=== PATIENT | female | born 1985 | race African-American/Black ===

== ENCOUNTER → 2016-08-16 | Outpatient (CLI) | payer OTHER ==
[~2016-08-16] MED LIST: BACTRIM DS 8001 TAB PO; CEPHALEXIN500 M1 PO; FLAGYL ER750 MG PO; LORTAB 2.5/5001 TAB PO; LORTAB 5/500 501 TAB PO; NO HOME MEDICATIONS; NORCO 325 MG-51 TAB PO; PEPCID AC 10MG10 MG PO; PREDNISONE20 MG PO; PROAIR HFA0.09 MG/AC IH; PROTONIX 40MG T40 MG PO; PULMICORT0.5 MG/21 IH; PYRIDIUM 100MG100 MG PO; SEPTRA DS 8001 TAB PO; [UNRECOGNIZED DRUG - REMARK]; proair inhaler
[2016-08-16 13:08] LABS: MEAN CELL VOLUME 90 fl (80.0-100.0); MEAN CORPUSCULAR HEMOGLOBIN 31 pg (27.0-31.0); MEAN CORPUSCULAR HGB CONC 34 g/dl (33.0-37.0); MEAN PLATELET VOLUME 11.2 fl (7.4-10.4); PLATELET COUNT 217 K/mm3 (130-400); RED BLOOD COUNT 4.55 M/mm3 (4.10-5.30); REDCELL DISTRIBUTION WIDTH-CV 11.7 % (11.5-14.5); WHITE BLOOD COUNT 3.7 K/mm3 (4.8-10.8)
[2016-08-16 13:18] LABS: ADJUSTED CALCIUM 9.2 mg/dL (8.4-10.2); ALBUMIN 4.1 gm/dL (3.5-5.0); BILIRUBIN,TOTAL 1.8 mg/dL (0.0-1.0); CALCIUM 9.3 mg/dL (8.4-10.2); CREATININE, serum 0.62 mg/dL (0.52-1.25); POTASSIUM 3.5 mmol/L (3.4-5.0); TOTAL PROTEIN 7.9 gm/dL (6.4-8.2)
== END ==
LOC: COL.LAB 12:39
PROVIDERS: Physician Assistant
DX: Z01.89 Encounter for other specified special examinations (principal)

== ENCOUNTER 2017-03-30 18:39 | Emergency (ER) | payer OTHER ==
[~2017-03-30] VITALS: Ht 162.6 cm; Wt 52.7 kg
[2017-03-30 18:43] VITALS: TEMP 99.3
[2017-03-30 19:54] LABS: BASO % 0.3 % (0.0-2.0); EOS # 0.3 (0.0-0.7); GRAN # 4.7 (1.4-6.5); HEMOGLOBIN 12.1 g/dl (12.5-16.0); LYMPH # 1.6 (1.2-3.4); LYMPH % 22.2 % (20.0-51.0); MEAN CELL VOLUME 91 fl (80.0-100.0); MEAN CORPUSCULAR HEMOGLOBIN 31 pg (27.0-31.0); MEAN CORPUSCULAR HGB CONC 34 g/dl (33.0-37.0); MEAN PLATELET VOLUME 10.9 fl (7.4-10.4); MONO # 0.4 (0.1-0.6); MONO % 6.2 % (1.7-9.3); PLATELET COUNT 198 K/mm3 (130-400); RED BLOOD COUNT 3.87 M/mm3 (4.10-5.30); REDCELL DISTRIBUTION WIDTH-CV 12.8 % (11.5-14.5); WHITE BLOOD COUNT 7.1 K/mm3 (4.8-10.8)
[2017-03-30 20:04] LABS: HEMATOCRIT 35.3 % (37.0-47.0)
[2017-03-30 20:14] LABS: PH 6 (5-8); SQUAMOUS EPITHELIAL 20-50 /hpf; URINE APPEARANCE Cloudy; URINE BACTERIA Occasional /hpf; URINE BILIRUBIN Negative (NEGATIVE); URINE BLOOD 3+ (NEGATIVE); URINE COLOR Red; URINE GLUCOSE Negative (NEGATIVE); URINE KETONE Negative (NEGATIVE); URINE UROBILINOGEN Negative (NEGATIVE); URINE WBC 20-50 /hpf
[2017-03-30 21:01] LABS: PH 6 (5-8); SQUAMOUS EPITHELIAL 0-2 /hpf; URINE APPEARANCE Clear; URINE BACTERIA Rare /hpf; URINE BILIRUBIN Negative (NEGATIVE); URINE BLOOD 1+ (NEGATIVE); URINE COLOR Yellow; URINE GLUCOSE Negative (NEGATIVE); URINE KETONE 1+ (NEGATIVE); URINE RBC 0-2 /hpf; URINE UROBILINOGEN Negative (NEGATIVE); URINE WBC 0-2 /hpf
[2017-03-30 21:53] VITALS: BP 111/64; PULSE 94
== END 2017-03-30 21:54 | disposition home or self-care (01) ==
LOC: COL.ER 18:39
PROVIDERS: Physician Assistant
DX: O45.92 Premature separation of placenta, unspecified, second trimester (principal); Z3A.15 15 weeks gestation of pregnancy; Z87.42 Personal history of other diseases of the female genital tract; Z98.890 Other specified postprocedural states

== ENCOUNTER 2017-04-25 18:59 | Emergency (ER) | payer OTHER ==
[~2017-04-25] VITALS: Ht 162.6 cm; Wt 52.3 kg
[2017-04-25 19:08] VITALS: BP 116/57; TEMP 98.3
[2017-04-25 20:27] LABS: PH 5 (5-8); URINE APPEARANCE Hazy; URINE BACTERIA Rare /hpf; URINE BILIRUBIN Negative (NEGATIVE); URINE BLOOD Negative (NEGATIVE); URINE COLOR Yellow; URINE GLUCOSE Negative (NEGATIVE); URINE KETONE Negative (NEGATIVE); URINE UROBILINOGEN Negative (NEGATIVE)
[2017-04-25 20:49] VITALS: PULSE 81
== END 2017-04-25 20:49 | disposition home or self-care (01) ==
LOC: COL.ER 18:59
PROVIDERS: Nurse Practitioner
DX: O26.892 Other specified pregnancy related conditions, second trimester (principal); R10.30 Lower abdominal pain, unspecified; O99.512 Diseases of the respiratory system complicating pregnancy, second trimester; J45.909 Unspecified asthma, uncomplicated; Z3A.18 18 weeks gestation of pregnancy; Z98.890 Other specified postprocedural states

== ENCOUNTER 2017-09-02 06:38 | Outpatient (CLI) | payer OTHER ==
[~2017-09-02] VITALS: Ht 162.6 cm; Wt 63.6 kg
[2017-09-02 06:31] VITALS: BP 106/59; PULSE 74; TEMP 98
[2017-09-02] MEDS ORDERED: PRENATAL MVI (06:56)
[2017-09-02] MEDS ORDERED: TYLENOL 500MG500 MG PO (06:57)
[2017-09-02 07:15] VITALS: BP 106/59; PULSE 74; TEMP 98
[2017-09-02 08:00] VITALS: BP 112/74; PULSE 97
[2017-09-02 08:15] VITALS: BP 108/69; PULSE 89
[2017-09-02 08:30] VITALS: BP 111/66; PULSE 81
== END 2017-09-02 08:50 | disposition home or self-care (01) ==
LOC: LDRO 06:38
DX: O32.1XX0 Maternal care for breech presentation, not applicable or unspecified (principal); Z3A.37 37 weeks gestation of pregnancy
CPT/HCPCS: J3105

== ENCOUNTER 2017-09-20 04:27 | Inpatient (IN) | payer OTHER ==
[~2017-09-20] VITALS: Ht 162.6 cm; Wt 64.1 kg
[2017-09-20] VITALS (44 sets, daily range): BP systolic 89–129; BP diastolic 53–89; PULSE 59–121; TEMP 97.3–98.2
[~2017-09-20 04:27] MED LIST changes: +PRENATAL MVI; +TYLENOL 500MG500 MG PO
[2017-09-20 12:55] LABS: HEMATOCRIT 42.8 % (37.0-47.0); HEMOGLOBIN 14.3 g/dl (12.5-16.0); MEAN CELL VOLUME 94 fl (80.0-100.0); MEAN CORPUSCULAR HEMOGLOBIN 31 pg (27.0-31.0); MEAN CORPUSCULAR HGB CONC 33 g/dl (33.0-37.0); MEAN PLATELET VOLUME 12.2 fl (7.4-10.4); PLATELET COUNT 150 K/mm3 (130-400); RED BLOOD COUNT 4.57 M/mm3 (4.10-5.30)
[2017-09-20 13:21] LABS: BAND 2 % (0-10); LYMPHOCYTE 9 % (20.0-51.0); NEUTROPHILS 86 % (42.0-75.2); PLATELET ESTIMATE NORMAL (NORMAL)
[2017-09-21] VITALS (13 sets, daily range): BP systolic 98–129; BP diastolic 51–78; PULSE 64–98; TEMP 97–98.2
[2017-09-21 07:50] LABS: BASO % 0.3 % (0.0-2.0); EOS % 0.2 % (0-4.0); GRAN # 10.3 (1.4-6.5); GRAN % 84.8 % (42.2-75.2); LYMPH % 8.3 % (20.0-51.0); MEAN CELL VOLUME 93 fl (80.0-100.0); MEAN CORPUSCULAR HGB CONC 34 g/dl (33.0-37.0); MEAN PLATELET VOLUME 11.7 fl (7.4-10.4); MONO # 0.7 (0.1-0.6); PLATELET COUNT 124 K/mm3 (130-400); RED BLOOD COUNT 3.76 M/mm3 (4.10-5.30); REDCELL DISTRIBUTION WIDTH-CV 13.1 % (11.5-14.5)
[2017-09-21 07:51] LABS: HEMOGLOBIN 11.8 g/dl (12.5-16.0); MEAN CORPUSCULAR HEMOGLOBIN 31 pg (27.0-31.0)
[2017-09-22 08:35] VITALS: BP 100/68; PULSE 74; TEMP 97.3
[2017-09-22 16:24] VITALS: BP 113/74; PULSE 88; TEMP 97.8
[2017-09-22 20:30] VITALS: BP 115/68; PULSE 73; TEMP 97.3
[2017-09-23] VITALS: BP 117/65; PULSE 84; TEMP 98.4
[2017-09-23] MEDS ORDERED: IBU600 MG PO (07:59)
[2017-09-23] MEDS ORDERED: PERCOCET 325 MG1 TA2 PO (07:59)
[2017-09-23 08:15] VITALS: BP 110/80; PULSE 38; TEMP 98.3
== END 2017-09-23 13:05 | disposition home or self-care (01) | DRG 766 ==
LOC: LDRO 04:27 → OB 12:15 → LDR 12:15 → OB 09-21 02:36
PROVIDERS: Obstetrics & Gynecology
PROC: 10D00Z1 Extraction of Products of Conception, Low, Open Approach (ICD-10-PCS; principal; 2017-09-20)
DX: O76 Abnormality in fetal heart rate and rhythm complicating labor and delivery (principal); O99.824 Streptococcus B carrier state complicating childbirth; O77.0 Labor and delivery complicated by meconium in amniotic fluid; Z3A.39 39 weeks gestation of pregnancy; Z37.0 Single live birth
CPT/HCPCS: J0690; J1885; J2270; J2370; J2400; J2405; J2540; J2590; J7120

== ENCOUNTER 2018-03-18 01:48 | Emergency (ER) | payer SELFPAY ==
[~2018-03-18] VITALS: Ht 162.6 cm; Wt 54.5 kg
[~2018-03-18 01:48] MED LIST changes: +IBU600 MG PO; +PERCOCET 325 MG1 TA2 PO
[2018-03-18 01:55] VITALS: BP 115/71; PULSE 73; TEMP 98.2
[2018-03-18] MEDS ORDERED: PROAIR HFA0.09 MG/AC IH (02:28)
== END 2018-03-18 02:30 | disposition home or self-care (01) ==
LOC: COL.ER 01:48
DX: S01.511A Laceration without foreign body of lip, initial encounter (principal); J45.909 Unspecified asthma, uncomplicated; W07.XXXA Fall from chair, initial encounter; W22.8XXA Striking against or struck by other objects, initial encounter; Y92.009 Unspecified place in unspecified non-institutional (private) residence as the place of occurrence of the external cause

== ENCOUNTER → 2020-12-31 | Outpatient (CLI) | payer OTHER | LOC: MC.RAD 13:37 | DX: N63.20 Unspecified lump in the left breast, unspecified quadrant (principal) ==

== ENCOUNTER 2021-08-27 02:21 | Inpatient (IN) | payer SELFPAY ==
[~2021-08-27] VITALS: Wt 64.6 kg
[2021-08-27] VITALS (411 sets, daily range): BP systolic 123–129; BP diastolic 83–108; PULSE 77–109; TEMP 96.9–99; O2SAT 92–100
[2021-08-27 02:39] LABS: BASO # 0.1 K/mm3 (0.0-0.2); EOS # 0.2 K/mm3 (0.0-0.7); EOS % 2.1 % (0.0-4.0); GRAN # 4.2 K/mm3 (1.4-6.5); GRAN % 58.9 % (42.2-75.2); HEMATOCRIT 45.1 % (37.0-47.0); HEMOGLOBIN 15.8 g/dl (12.5-16.0); LYMPH # 2.3 K/mm3 (1.2-3.4); LYMPH % 32.2 % (20.0-51.0); MEAN CELL VOLUME 92 fl (80.0-100.0); MEAN CORPUSCULAR HEMOGLOBIN 32 pg (27-31); MEAN CORPUSCULAR HGB CONC 35 g/dl (33.0-37.0); MEAN PLATELET VOLUME 10.7 fl (7.4-10.4); MONO # 0.4 K/mm3 (0.1-0.6); MONO % 5.5 % (1.7-9.3); PLATELET COUNT 368 K/mm3 (130-400); RED BLOOD COUNT 4.92 M/mm3 (4.10-5.30); REDCELL DISTRIBUTION WIDTH-CV 11.8 % (11.5-14.5)
[2021-08-27 02:59] LABS: ALANINE AMINOTRANSFERASE 11 U/L (0-55); ALBUMIN 4.6 gm/dL (3.5-5.0); ALKALINE PHOSPHATASE 91 U/L (40-150); ANION GAP 15 mmol/L (7-16); AST,SGOT 21 U/L (5-34); BILIRUBIN,TOTAL 1.1 mg/dL (0.2-1.2); BLOOD UREA NITROGEN 12 mg/dL (7-19); CALCIUM 9.3 mg/dL (8.4-10.2); CARBON DIOXIDE 17 mmol/L (22-29); CHLORIDE 109 mmol/L (98-107); CREATININE, serum 0.87 mg/dL (0.57-1.11); GLUCOSE 116 mg/dL (70-99); POTASSIUM 3.4 mmol/L (3.5-4.5); SODIUM 141 mmol/L (136-145); TOTAL PROTEIN 8.8 gm/dL (6.2-8.1)
[2021-08-27 03:00] LABS: ACETAMINOPHEN < 1.0 ug/mL (10-30); SALICYLATE < 5.0 mg/dL (15.0-30.0)
[2021-08-27 03:10] LABS: ALCOHOL(ethanol),MEDICAL 314 mg/dL (0-10)
[2021-08-27 10:04] LABS: TRICYCLIC ANTIDEPRESS URINE NEGATIVE
--- NOTE | 2021-08-27 22:30 | NUR ---
PT TRANSPORTED TO CT VIA WHEELCHAIR, PORTABLE MONITOR. TOLERATED WELL. CALM, BUT TEARFUL WHEN BACK TO BED AND SPEAKING WITH NURSE. STATES NO NEEDS/REQUESTS. DENIES ANY THOUGHTS OF SELF HARM AT THIS TIME. WILL CONTINUE TO MONITOR.
[2021-08-28] VITALS (476 sets, daily range): BP systolic 105–1115; BP diastolic 68–81; PULSE 72–88; TEMP 98–99.5; O2SAT 91–100
[2021-08-28 05:29] LABS: BASO % 0.4 % (0.0-2.0); EOS # 0.1 K/mm3 (0.0-0.7); EOS % 0.9 % (0.0-4.0); GRAN # 6.4 K/mm3 (1.4-6.5); LYMPH # 1.2 K/mm3 (1.2-3.4); LYMPH % 14.3 % (20.0-51.0); MEAN CELL VOLUME 93 fl (80.0-100.0); MEAN CORPUSCULAR HGB CONC 35 g/dl (33.0-37.0); MEAN PLATELET VOLUME 10.7 fl (7.4-10.4); MONO # 0.4 K/mm3 (0.1-0.6); MONO % 5.2 % (1.7-9.3)
[2021-08-28 05:45] LABS: CALCIUM 8.9 mg/dL (8.4-10.2); CREATININE, serum 0.66 mg/dL (0.57-1.11); POTASSIUM 3.7 mmol/L (3.5-4.5)
[2021-08-28 06:28] LABS: MEAN CORPUSCULAR HEMOGLOBIN 32 pg (27-31)
[2021-08-28 06:34] LABS: HEMOGLOBIN 13.1 g/dl (12.5-16.0); PLATELET COUNT 210 K/mm3 (130-400)
--- NOTE | 2021-08-28 10:30 | NUR ---
PT BROUGHT TO MEDICAL FLOOR. 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 COULD NOT RAISE HER ARMS OR LEGS VERY HIGH OFF THE BED. PT TEARFUL BUT AOX4, TISSUES BROUGHT IN TO PATIENT, NO OTHER NEEDS
--- NOTE | 2021-08-28 15:35 | NUR ---
salvage mend worker met with patient's mother, Nikky Amador #[phone] and sister, Albertina Contreras #[phone] and provided information on hospital policy and support. Worker arranged for ICU director to call mother and provided Sydnie's name and number for risk management as mother requested an advocate. Patient is currently an ICU patient and is not allowed visitor due to suicidal attempt. Worker met with patient and gave eye glasses brought by patient's mother. Worker conveyed message that her family loves her and that patient's children are safe and taken care of. Awaiting for mental health screening this date. Patient will return home with her children unless it is determined that she needs inpatient psychiatric treatment.
--- NOTE | 2021-08-28 18:33 | NUR ---
PT MOTHER REQUESTED UPDATE PER ALLY QUESADA, CALLED HER TO NOTIFY IT WOULD HAPPEN TONIGHT BUT UNSURE OF THE TIME. [employer] SCREENER CALLED AROUND 1830, PT SET UP WITH IPAD IN ROOM AND CURRENTLY TALKING TO SCREENER.
[2021-08-29] VITALS (19 sets, daily range): BP systolic 109–122; BP diastolic 68–79; PULSE 77–84; TEMP 98.6–98.8
--- NOTE | 2021-08-29 00:36 | NUR ---
PATIENT ALERT AND ORIENTED. C/O HEADACHE AND PRN TYLENOL GIVEN. IVF INFUSING INTO R AC IV. GAINES TO DD WITH CLEAR YELLOW URINE OUTPUT. SCDS APPLIED. SEE ASSESSMENT.
[2021-08-29 06:56] LABS: BASO % 0.5 % (0.0-2.0); EOS # 0.1 K/mm3 (0.0-0.7); EOS % 1.4 % (0.0-4.0); GRAN # 3.1 K/mm3 (1.4-6.5); GRAN % 74.8 % (42.2-75.2); HEMATOCRIT 38.8 % (37.0-47.0); HEMOGLOBIN 13.1 g/dl (12.5-16.0); LYMPH # 0.6 K/mm3 (1.2-3.4); LYMPH % 14.2 % (20.0-51.0); MEAN CELL VOLUME 95 fl (80.0-100.0); MEAN CORPUSCULAR HEMOGLOBIN 32 pg (27-31); MEAN CORPUSCULAR HGB CONC 34 g/dl (33.0-37.0); MEAN PLATELET VOLUME 11.5 fl (7.4-10.4); MONO # 0.4 K/mm3 (0.1-0.6); MONO % 8.9 % (1.7-9.3); PLATELET COUNT 166 K/mm3 (130-400); REDCELL DISTRIBUTION WIDTH-CV 11.8 % (11.5-14.5)
[2021-08-29 07:09] LABS: CALCIUM 8.8 mg/dL (8.4-10.2); CREATININE, serum 0.72 mg/dL (0.57-1.11); POTASSIUM 3.6 mmol/L (3.5-4.5)
--- NOTE | 2021-08-29 09:55 | NUR ---
PT HAS BEEN CLEARED BY [facility] TO GO HOME. GETTING APPOINTMENT INFORMATION CLEARED BEFORE DISCHARGE. NO FURTHER CONCERNS.
--- NOTE | 2021-08-29 12:27 | NUR ---
PT DISCHARGED WITH SISTER AT THIS TIME. DENIES ANY NEEDS OR CONCERNS. UNDERSTOOD PT DISCHARGE EDUCATION. NO OTHER CONCERNS.
== END 2021-08-29 12:46 | disposition home or self-care (01) | DRG 917 ==
LOC: COL.ER 02:21 → ICU 11:08 → MEDICAL 08-28 10:30
PROVIDERS: Personal Emergency Response Attendant; Physician Assistant; ADMIT Internal Medicine
PROC: 0HQEXZZ Repair Left Lower Arm Skin, External Approach (ICD-10-PCS; principal; 2021-08-27)
DX: T42.8X2A Poisoning by antiparkinsonism drugs and other central muscle-tone depressants, intentional self-harm, initial encounter (principal); G92.8 Other toxic encephalopathy; E87.2 Acidosis; S51.812A Laceration without foreign body of left forearm, initial encounter; J45.909 Unspecified asthma, uncomplicated; K21.9 Gastro-esophageal reflux disease without esophagitis; E87.6 Hypokalemia; F10.129 Alcohol abuse with intoxication, unspecified; Y90.8 Blood alcohol level of 240 mg/100 ml or more; Z20.822 Contact with and (suspected) exposure to COVID-19
CPT/HCPCS: 99223-AI; 99233-AI; 99239; J2060; J2310; J2405; J3411; J3480; J7030; J7120

== ENCOUNTER 2021-09-10 09:46 | Emergency (ER) | payer SELFPAY ==
[2021-09-10 09:55] VITALS: BP 129/88; PULSE 93; TEMP 98.4
== END 2021-09-10 10:05 | disposition home or self-care (01) ==
LOC: COL.ER 09:46
DX: Z48.02 Encounter for removal of sutures (principal)